=== PATIENT | female | born 1930 | race Caucasian/White ===

== ENCOUNTER 2016-08-18 08:32 | Outpatient (CLI) | payer MEDICARE, BC ==
[2016-08-18 10:27] LABS: Cardiac Risk 2.5 (Less than 4.5)
== END 2016-08-18 08:33 | disposition home or self-care (01) ==
LOC: BURLAB 08:32
PROVIDERS: ATTEND Internal Medicine Cardiovascular Disease
DX: Z51.81 Encounter for therapeutic drug level monitoring (principal); Z79.899 Other long term (current) drug therapy
CPT/HCPCS: 36415; 80061; 84450; 84460

== ENCOUNTER 2017-07-14 14:15 | Outpatient (CLI) | payer MEDICARE, BC ==
--- NOTE | 2017-07-14 18:21 | RAD ---
LEFT KNEE FOUR VIEWS 07/14/17 No fracture or joint effusion was seen. While a small cleft is seen in the anterior aspect of the pat maci, in the absence of joint fluid or any soft tissue swelling over it, fracture does not seem ratio nal. There is minimal medial joint space narrowing but not much degenerative change otherwise. Calcif ication is seen in the distal SFA near Tyron's canal. IMPRESSION: No definite acute findings. POS: HOME
== END 2017-07-14 14:16 | disposition home or self-care (01) ==
LOC: BURRAD 14:15
PROVIDERS: ATTEND Family Medicine
DX: M25.562 Pain in left knee (principal)